=== PATIENT | female | born 1945 | race Caucasian/White ===

== ENCOUNTER 2022-06-28 11:42 | Outpatient (CLI) | payer MEDICARE, BC | END 2022-06-28 11:43 | disposition home or self-care (01) | LOC: SCSMRI 11:42 | PROVIDERS: ATTEND Specialist | DX: M51.16 Intervertebral disc disorders with radiculopathy, lumbar region (principal); M48.061 Spinal stenosis, lumbar region without neurogenic claudication; M48.07 Spinal stenosis, lumbosacral region | CPT/HCPCS: 72148 ==